=== PATIENT | male | born 2000 | race Caucasian/White ===

== ENCOUNTER 2019-07-18 23:43 | Emergency (ER) | payer BC, SELFPAY ==
[2019-07-18 23:44] VITALS: BP 162/78; PULSE 87; RESP 18; TEMP 37; O2SAT 97; BMI 34.3
--- NOTE | 2019-07-19 00:37 | ED.VIS.GEN ---
History of Present Illness Chief Complaint: Cough Narrative: Patient is a 18-year-old male who presents due to being sick for 2 weeks. He complains of 2 weeks of generalized malaise, fatigue, productive cough. He also has felt nauseated for 2 days and vomited twice today. Planes of diarrhea, congestion, rhinorrhea and sore throat. He has multiple sick contacts with similar illness. He complains of feeling short of breath. Currently he is not nauseated and states he actually feels hungry. Past Medical History - Allergies and Home Meds Allergies/Adverse Reactions: Allergies amoxicillin [Amoxicillin] Allergy (Verified 07/18/19 23:46) Hives cefdinir Allergy (Verified 07/18/19 23:46) Hives Cephalosporins Allergy (Verified 07/18/19 23:46) Hives Penicillins Allergy (Verified 07/18/19 23:46) Hives Primary Care Physician: Trav Vazquez MD [Primary Care Provider] - Past Medical History: None Smoking Status: Current some day smoker Review of Systems All systems negative except as indicated General: Reports: Malaise Respiratory: Reports: Dyspnea, Cough, Sputum Gastrointestinal: Reports: Nausea, Vomiting, Diarrhea Physical Exam Vital Signs/Narrative: Vital Signs Temp Pulse Resp BP Pulse Ox 07/18/19 23:44 98.6 F 87 18 162/78 H 97 Inital Vital Signs reviewed: Yes General: Well nourished, Well developed Head: Normocephalic Eyes: EOMI ENT: Moist mucous membranes, - - Oropharynx clear, no tonsillar enlargement or exudates, uvula is midline Neck: Supple Cardiovascular: Regular rate, Regular rhythm Respiratory: No distress, CTA bilaterally Abdomen: Soft, Nontender Skin: Normal color Neurological: Alert Psychological: Normal affect Diagnostic/Tx/Re-eval Impressions Chest X-Ray 07/19/19 01:00 IMPRESSION: Peribronchial thickening as can be seen with bronchitis and airways disease. at 0115 Reported and signed by: Nusrat Pacheco MD Electronically Signed: Nusrat Pacheco MD at 1:15 EST Tel , Service support , 07/19/19 01:00 Chest PA and Lateral [RAD] Stat 07/19/19 00:55 Mucosa - Nose Influenza Types A,B Direct FA ([facility]) - Final - Medical Decision Making Chest x-ray shows peribronchial thickening. Rapid influenza is negative. Patient's presentation is consistent with a viral syndrome. He was advised on supportive care. He was advised to follow-up as an outpatient but does understand return for new or worsening symptoms and was discharged home. ED Disposition - Plan for ED Patient: Disposition: Home or Assisted Living Diagnosis: Bronchitis, Viral syndrome Instructions: BRONCHITIS, No Antibiotic (Adult) Referrals: Trav Vazquez MD [Primary Care Provider] -
--- NOTE | 2019-07-19 01:00 | RAD_ITS ---
HISTORY: SOB, sore throat and productive cough x 1 week ADDITIONAL HISTORY: None provided. COMPARISON: None TECHNIQUE: Frontal and lateral chest radiographs. Number of images including paperwork: 2 FINDINGS: LUNGS AND PLEURA: No consolidation, mass or pleural effusion. Peribronchial thickening. CARDIAC SILHOUETTE: Unremarkable. MEDIASTINUM AND KIM: Unremarkable. UPPER ABDOMEN: Unremarkable. SKELETON AND SOFT TISSUES: No acute findings. OTHER DEVICES AND HARDWARE: None. RAD/Chest PA and Lateral IMPRESSION: Peribronchial thickening as can be seen with bronchitis and airways disease. at 0115 Reported and signed by: Nusrat Pacheco MD Electronically Signed: Nusrat Pacheco MD at 1:15 EST Tel , Service support ,
[2019-07-19 01:34] VITALS: RESP 18
== END 2019-07-19 01:34 | disposition home or self-care (01) ==
PROVIDERS: Emergency Provider Emergency Medicine; Family Provider Pediatrics; PCP Pediatrics
DX: J40 Bronchitis, not specified as acute or chronic (principal); B34.9 Viral infection, unspecified; R11.2 Nausea with vomiting, unspecified; R19.7 Diarrhea, unspecified; F17.200 Nicotine dependence, unspecified, uncomplicated
CPT/HCPCS: 71046; 87804; 99283

== ENCOUNTER 2019-07-21 20:18 | Emergency (ER) | payer BC, SELFPAY ==
[2019-07-21 20:18] VITALS: BP 147/79; PULSE 110; RESP 15; TEMP 36.8; O2SAT 98; BMI 34.3
--- NOTE | 2019-07-21 20:45 | RAD_ITS ---
STUDY: X-RAY - RIGHT TIBIA AND FIBULA REASON FOR EXAM: Male, 18 years old. Laceration to lower right extremity while chopping wood. TECHNIQUE: 4 view(s) of the tibia and fibula were obtained. COMPARISON: None. FINDINGS: Normal visualized tibia. Normal visualized fibula. The soft tissue structures are unremarkable. RAD/Tibia & Fibula 2 Views IMPRESSION: Normal x-ray examination of the tibia and fibula. Electronically Signed: Luz Marina Becker MD at 21:12 EST Tel , Service support ,
--- NOTE | 2019-07-21 21:37 | ED.DCSUM_ITS ---
History of Present Illness Chief Complaint: Laceration Informant: Patient Onset: Today Context: Sudden Onset Timing: Continuous Quality: Pain anterior mid right leg Location: Per above Current Severity: Mild Maximum Severity: Moderate Worsened by: Walking and palpation Relieved by: Nothing Associated Symptoms: No associated symptoms Narrative: Patient is a 18-year-old male who was struck by an ax accidentally. His friend was cutting wood. He presents for evaluation. He denies paresthesia, anesthesia buttocks. Tetanus is up-to-date. He is allergic to penicillin and cephalosporins. Prior similar symptoms: No Recent Illness/Hospitalization: No - Past Medical History (1) No significant past medical history Status: Acute Past Medical History - Allergies and Home Meds Allergies/Adverse Reactions: Allergies amoxicillin [Amoxicillin] Allergy (Verified 07/21/19 20:22) Hives cefdinir Allergy (Verified 07/21/19 20:22) Hives Cephalosporins Allergy (Verified 07/21/19 20:22) Hives Penicillins Allergy (Verified 07/21/19 20:22) Hives Primary Care Physician: Trav Vazquez MD [Primary Care Provider] - Prior records reviewed: No Past Medical History: None Surgical History: no surgical history Lives: With Family Smoking Status: Current every day smoker Drugs: None Review of Systems General: Denies: Chills, Fever, Malaise, Sweats Musculoskeletal: Reports: Extremity Pain. Denies: Myalgias, Arthralgias, Neck pain, Back pain, Swelling Skin: Reports: Wounds. Denies: Rash Neurological: Denies: Weakness, Parasthesia, Numbness Hematologic: Denies: Easy bruising, Easy bleeding Physical Exam Vital Signs/Narrative: Vital Signs Temp Pulse Resp BP Pulse Ox 07/21/19 20:18 98.2 F 110 H 15 147/79 H 98 Inital Vital Signs reviewed: Yes General: Well nourished, Well developed, No Acute Distress Head: Normocephalic, Atraumatic Eyes: Perrl, EOMI. Negative for: Pale conjunctiva, Scleral icterus Cardiovascular: Regular rate, Regular rhythm, No murmurs Respiratory: No distress, CTA bilaterally, Chest nontender Extremities: Tenderness, - - Is a irregular shaped laceration anterior right leg. There is pain to palpation. There is no foreign body. DP and PT pulses are palpable. There is minimal tenderness over the tibia. Skin: Normal color, No rash, Trauma. Negative for: Cyanosis, Diaphoresis, Jaundice Neurological: Alert, Oriented x3, Cranial nerves II-XII grossly intact, Normal Strength, Normal Sensation. Negative for: Normal Gait Psychological: Normal affect, Normal Mood Diagnostic/Tx/Re-eval Chest X-Ray - ED: 2 View, Read by ED Physician, - - 2 view x-ray of the right ti miguel a and fibula was obtained. There is no foreign body. There is no evidence of trauma to the tibia or fibula. There is no subcutaneous air. - Medical Decision Making We will obtain x-ray to evaluate for foreign body and fracture. None was noted. Patient was informed that his wound would need sutured. Procedures - Lacerations No standard instances Length: 0.98 in Depth: Sub Q Shape: Irregular Irrigated (ml): 150 Number of Sutures/[place]: 4 Suture Information: Ethilon, Simple, 4-0 ED Disposition - Plan for ED Patient: Disposition: Home or Assisted Living Diagnosis: Laceration of leg, right Instructions: LACERATION, Extrem (Suture, Staple or Tape) Referrals: Trav Vazquez MD [Primary Care Provider] - 10 Day for suture removal Additional Instructions: Apply bacitracin ointment 3 times a day.
[2019-07-21 21:53] VITALS: BP 138/76; PULSE 80; RESP 16; O2SAT 98
== END 2019-07-21 21:56 | disposition home or self-care (01) ==
PROVIDERS: Emergency Provider Emergency Medicine; Family Provider Pediatrics; PCP Pediatrics
DX: S81.811A Laceration without foreign body, right lower leg, initial encounter (principal); W26.8XXA Contact with other sharp object(s), not elsewhere classified, initial encounter; Y93.9 Activity, unspecified; Y92.9 Unspecified place or not applicable; F17.200 Nicotine dependence, unspecified, uncomplicated
CPT/HCPCS: 12001; 73590; 99285